=== PATIENT | female | born 1935 | race Caucasian/White ===

== ENCOUNTER 2016-04-18 16:16 | Inpatient (IN) | payer MEDICARE, OTHER ==
[~2016-04-18] VITALS: Ht 160 cm; Wt 49.9 kg
[2016-04-18] VITALS (7 sets, daily range): BP systolic 99–140; BP diastolic 63–91
[~2016-04-18 16:16] MED LIST: A & D OINT1 APPLI1 TOPIC; ABILIFY2 MG ORAL; ACETAMINOPHEN120 MG RECTAL; ACETAMINOPHEN650 M3 ORAL; ADALAT20 MG ORAL; ALBUTEROL2.5 MG/3 M INH; ALLOPURINOL100 M1 ORAL; AMBIEN5 MG ORAL; AMOXICILLIN500 MG ORAL; ARICEPT5 MG ORAL; ARTIFICIAL TEAR15 ML BOTH EYES; ASCORBIC ACID500 M4 ORAL; AZELASTINE137 MCG/0. NS; CEPACOL SORE T1 EAC4 PO; CEPHALEXIN250 MG ORAL; COENZYME Q101 EA ORAL; COENZYME Q10200 MG PO; COLACE100 MG ORAL; COREG3.125 MG ORAL; COREG6.25 MG ORAL; CRANBERRY500 M3 PO; CYMBALTA20 MG ORAL; DITROPAN10 MG ORAL; ESCITALOPRAM OX10 MG ORAL; FLONASE1 SPRAYS NASAL; FUROSEMIDE20 M1 ORAL; IBUPROFEN200 M2 ORAL; IBUPROFEN200 MG ORAL; IMODIUM2 MG ORAL; KLOR-CON M2020 MEQ ORAL; LASIX20 M1 ORAL; LEXAPRO10 MG ORAL; LISINOPRIL10 MG ORAL; LOMOTIL TABLET1 EACH ORAL; LOPERAMIDE2 M1 PO; LORATADINE10 M2 PO; LOSARTAN POTASS25 MG ORAL; MAPAP325 M1 PO; MIRTAZAPINE15 M3 ORAL; NORCO 5-325 TA1 EACH ORAL; NORVASC5 MG ORAL; NUEDEXTA 20-101 EAC1 PO; OMEPRAZOLE20 M3 ORAL; PEPTO-BISM262 MG/15 ORAL; POTASSIUM CHLO10 MEQ ORAL; PREMARIN VAG CR45 GM PV; PREMARIN0.45 MG ORAL; PREMARIN0.625 MG ORAL; PREPARATION H1 EAC1 TP; PREPARATION H1 EAC3 RC; Q-TUSSIN100 MG/5 M PO; REMERON15 MG ORAL; RISPERDAL0.5 MG ORAL; ROZEREM8 MG ORAL; SENNA8.6 M3 PO; SIMVASTATIN80 MG ORAL; THERA-M1 EACH PO; TYLENOL650 MG/20. ORAL; VESICARE5 MG ORAL; VITAMIN D-32000 UNI2 PO
[2016-04-18] MEDS ORDERED: Cefepime HCl 1 GM in NS 55 ML IV ONE (16:30)
[2016-04-18] MEDS ORDERED: Azithromycin 500 MG in NS 275 ML IV ONE (16:30)
--- NOTE | 2016-04-18 16:36 | Emergency Room Report ---
History of Present Illness General Chief Complaint: Upper Respiratory Illness Source: Medical Record Present Illness HPI 80 YO F sent from [facility] for fever, cough, chest congestion per report from RN. I reviewed paperwork from SNF (see below). Patient not speaking, ? chronic condition. No additional HPI available. Per paperwork from [facility]: history of OA, metabolic enceph, depression, dementia, CHF, HTN, CLL in remission Allergies: Coded Allergies: No Known Allergies (Verified , 06/24/11) Patient History Past Medical History: other - see HPI Past Surgical History: unable to obtain Pertinent Family History: unable to obtain Social History: Denies: alcohol use, drug use, smoking Now: No Immunizations: UTD Reviewed Nursing Documentation: PMH: Agreed, PSxH: Agreed Nursing Documentation-PMH Past Medical History: No History, Except For Hx Cardiac Problems: Yes - CHF, Hyperlipidemia, Anemia, Hx Hypertension: Yes - Osteoarthritis Hx Pacemaker: No - - Hx Cancer: Yes - Chronic Lymphocytic leukemia Hx Gastrointestinal Problems: Yes - dysphagia Hx Neurological Problems: Yes - Metabolic encephalopathy, difficulty in walking Hx Weakness: Yes - - Review of Systems All Other Systems: negative except mentioned in HPI Physical Exam Vital Signs Date Time Temp Pulse Resp B/P Pulse Ox O2 Delivery O2 Flow Rate FiO2 04/18/16 16:17 101.7 98 16 130/84 94 Room Air Sp02 EP Interpretation: reviewed, abnormal General Appearance: normal inspection, well appearing, no apparent distress, alert, GCS 15, non-toxic Head: normocephalic, atraumatic Eyes: bilateral eye EOMI, bilateral eye PERRL ENT: normal ENT inspection, hearing grossly normal, normal pharynx, no angioedema, TMs + canals normal, uvula midline, moist mucus membranes Neck: normal inspection, full range of motion, supple, no meningismus, no bony tend Respiratory: normal inspection, no respiratory distress, no retraction, no accessory muscle use, no wheezing, rhonchi Cardiovascular #1: regular rate, rhythm, no edema Gastrointestinal: normal inspection, normal bowel sounds, non tender, soft, no guarding, no hernia Genitourinary: no CVA tenderness Musculoskeletal: normal inspection, back normal, normal range of motion, Madison' s Sign negative Neurologic: normal inspection, alert, oriented x3, responsive, territory account representative III-XII nml as tested, motor strength/tone normal, speech normal Psychiatric: normal inspection, judgement/insight normal, mood/affect normal Skin: normal inspection, normal color, no rash Medical Decision Making Medicare Attestation I Ute Tanner MD hereby attest that the medical record entry for date of service, 01/26/16 accurately reflects signatures/notations that I made in my capacity as MD when I treated/diagnosed the above listed Medicare beneficiary. I attest that this information is true, accurate and complete to the best of my knowledge. I understand that any falsification, omission, or concealment of material fact may subject me to administrative, civil, or criminal liability. This patient warrants hospital admission for extreme of age and has a condition that cannot be treated as outpatient. Diagnostic Impression: Primary Impression: Pneumonia Qualified Codes: J18.9 - Pneumonia, unspecified organism Additional Impression: CKD (chronic kidney disease) Qualified Codes: N18.9 - Chronic kidney disease, unspecified ER Course CXR with ?retrocardiac infilitrate/right sided LL PNA Labs: Leuks 16k. SerumCr elevation baseline compared to review of EMR Endorsed to Dr Moore per request of Dr Michaels at 555pm for tele admission Influenza swab pending EKG Diagnostic Results Rate: tachycardiac Rhythm: NSR ST Segments: other - ST depressions in 1, AVL, V5-6 Rhythm Strip Diag. Results EP Interpretation: yes Rate: 100 Rhythm: other - PACs Chest X-Ray Diagnostic Results EP Interpretation: Yes Findings: no pneumothorax, other - Cardiomegaly, possible right lower lobe PNA Number of Views: 1 Last Vital Signs Date Time Temp Pulse Resp B/P Pulse Ox O2 Delivery O2 Flow Rate FiO2 04/18/16 16:17 101.7 98 16 130/84 94 Room Air Status: improved Disposition: ADMITTED INPATIENT Condition: Serious UTE TANNER M.D. Apr 18, 2016 16:36
[2016-04-18] MEDS ORDERED: Cefepime 1gm vial ONE (16:48)
[2016-04-18] MEDS ORDERED: Azithromycin Inj IV ONE (16:48)
[2016-04-18 17:03] LABS: BASOPHILS % (AUTO) 0.6 % (0.0-2.0); EOSINOPHILS % (AUTO) 0.3 % (0.0-3.0); LYMPHOCYTES % (AUTO) 11.2 % (20.0-45.0); MEAN CORPUSCULAR HEMOGLOBIN 29.3 PG (27.0-31.0); MEAN CORPUSCULAR HGB CONC 32.4 G/DL (32.0-36.0); MEAN CORPUSCULAR VOLUME 90 FL (80-99); MEAN PLATELET VOLUME 7.2 FL (6.5-10.1); MONOCYTES % (AUTO) 9.9 % (1.0-10.0); PLATELET COUNT 191 K/UL (150-450); RED BLOOD COUNT 3.59 M/UL (4.20-5.40); RED CELL DISTRIBUTION WIDTH 12.9 % (11.6-14.8); WHITE BLOOD COUNT 14.8 K/UL (4.8-10.8)
[2016-04-18 17:14] LABS: KETONES,URINE NEGATIVE (NEGATIVE); LEUKOCYTE ESTERASE ,URINE NEGATIVE (NEGATIVE); NITRITE,URINE NEGATIVE (NEGATIVE); PH,URINE 5 (4.5-8.0); PROTEIN,URINE 3+ (NEGATIVE); UROBILINOGEN,URINE NORMAL MG/DL (0.0-1.0)
[2016-04-18 17:15] LABS: APPEARANCE,URINE SLIGHTLY CLOUDY
[2016-04-18 17:21] LABS: ALANINE AMINOTRANSFERASE 5 U/L (3-33); ALBUMIN/GLOBULIN RATIO 1.2 (1.0-2.7); ANION GAP 15 (5-15); ASPARTATE AMINO TRANSFERASE 9 U/L (5-40); CALCIUM 9.5 mg/dL (8.6-10.2); CARBON DIOXIDE 24 mEQ/L (20-30); CHLORIDE 103 mEQ/L (98-107); CREATININE 1.4 mg/dL (0.5-0.9); HEMOLYSIS 6; POTASSIUM 4.7 mEQ/L (3.4-4.9); SODIUM 142 mEQ/L (135-145); TOTAL PROTEIN 6.1 g/dL (6.6-8.7)
[2016-04-18 17:29] LABS: AMORPHOUS SEDIMENT,UR MANY /LPF; BACTERIA,URINE FEW /HPF; RBC,URINE 0-2 /HPF (0 - 2); SQUAMOUS EPITHELIAL CELL,UR MODERATE /LPF (NONE/OCC); WBC,URINE 0-2 /HPF (0 - 2)
[2016-04-19] VITALS (7 sets, daily range): BP systolic 133–159; BP diastolic 67–99
[2016-04-19] MEDS ORDERED: VESICARE10 MG ORAL (01:53)
[2016-04-19] MEDS ORDERED: Albuterol ud Inhalation HHN PRN (02:00)
[2016-04-19] MEDS ORDERED: Acetaminophen 650mg/20.3ml ORAL PRN (02:00)
[2016-04-19] MEDS ORDERED: Prep H Ointment 57gm RECTAL PRN (02:30)
[2016-04-19] MEDS ORDERED: guaiFENesin 100mg/5ml Liq ud ORAL PRN (02:45)
[2016-04-19] MEDS ORDERED: Cefepime HCl 1 GM in D5W 55 ML IVPB SCH (09:00)
[2016-04-19 09:42] LABS: BASOPHILS % (AUTO) 0.4 % (0.0-2.0); EOSINOPHILS % (AUTO) 0.3 % (0.0-3.0); LYMPHOCYTES % (AUTO) 11.6 % (20.0-45.0); MEAN CORPUSCULAR HEMOGLOBIN 29.5 PG (27.0-31.0); MEAN CORPUSCULAR HGB CONC 32.7 G/DL (32.0-36.0); MEAN CORPUSCULAR VOLUME 90 FL (80-99); MEAN PLATELET VOLUME 6.7 FL (6.5-10.1); MONOCYTES % (AUTO) 8.1 % (1.0-10.0); NEUTROPHILS % (AUTO) 79.7 % (45.0-75.0); PLATELET COUNT 225 K/UL (150-450); RED BLOOD COUNT 3.53 M/UL (4.20-5.40); RED CELL DISTRIBUTION WIDTH 12.9 % (11.6-14.8); WHITE BLOOD COUNT 16.8 K/UL (4.8-10.8)
[2016-04-19] MEDS: Premarin tab 0.625MG ORAL SCH (10:09)
[2016-04-19] MEDS: Allopurinol 100mg Tab ORAL SCH (10:09)
[2016-04-19] MEDS: Vitamin D 1000 IU Tab ORAL SCH (10:09)
[2016-04-19] MEDS: Nuedexta Capsule 20/10mg ORAL SCH ×2 (10:09→18:25)
[2016-04-19] MEDS: Docusate 100mg cap ORAL SCH ×2 (10:09→18:25)
[2016-04-19] MEDS: Lisinopril 10mg tab ORAL SCH ×2 (10:09→22:11)
[2016-04-19] MEDS: Multivitamin w/Minerals tab ORAL SCH (10:09)
[2016-04-19] MEDS: Ascorbic Acid 500mg tab ORAL SCH (10:10)
--- NOTE | 2016-04-19 10:58 | Diagnostic Imaging Report ---
Indications: Shortness of breath Technique: Portable AP chest Findings: Comparison: 07/23/2015 Inspiratory effort has improved. Hazy opacities have developed in/over the right mid and lower lung zones. Right costophrenic angle mildly blunted. Visualized portions of left lung and pleura remain clear. Cardiac silhouette remains enlarged. Pulmonary vasculature remains within normal limits. Calcification and elongation/ectasia of the aortic arch, prominent hiatal versus diaphragmatic hernia again noted. IMPRESSION: Development of right lung and/or pleural opacities. Diagnostic possibilities include atelectasis, pneumonia and/or pleural effusion Stable chronic changes as described
[2016-04-19] MEDS: Carvedilol 6.25mg Tab ORAL SCH ×2 (11:57→22:11)
[2016-04-19] MEDS ORDERED: Cefepime 500mg in D5W 55ml IVPB SCH (17:00)
[2016-04-19] MEDS: Azithromycin 500 MG in D5W 275 ML IV SCH (18:31)
--- NOTE | 2016-04-19 21:54 | Geriatric Progress Note ---
Subjective Interval Events 80 y/o frail woman with multiple chronic medical issues, sent from SNF to ED for cough, fever, and congestion. In ED, found to have leukocytosis, possible RML infiltrate, somewhat elevated proBNP, lethargy. Patient admitted for tx of apparent pneumonia. Currently, answers to name with normal vocalization, denies discomfort or SOB. Does have congested cough. Currently O2 sat is 93% on RA. Other VSS stable. Lethargic, but no in physical distress. Chest reveals distant b.s., some egophony over L mid lung field, no wheezing, but coarse upper airway rhonchi. CV distant heart tones, regular. Abd benign. Ext without edema. Imp: ? pneumonia +/- element of CHF. Consider influenza with secondary bacterial pneumonia. Continue usual meds, except OTCs. Cover with empiric zithromax, cefepime. Bronchodilator tx. Hold Lasix initially. F/u labs. DNR per prior POLST. Begin heparin for DVT prophylaxis. Dictated #[id number] Geriatric Geriatric Last 24 Hour Vital Signs Date Time Temp Pulse Resp B/P Pulse Ox O2 Delivery O2 Flow Rate FiO2 04/19/16 20:27 97.9 104 18 142/82 93 Room Air 04/19/16 16:05 94 04/19/16 15:58 98.1 95 18 140/80 96 Room Air 04/19/16 11:57 100 159/99 04/19/16 11:20 96.3 100 18 159/99 96 Room Air 04/19/16 10:09 145/99 04/19/16 08:33 94 20 Nasal Cannula 2.0 92 04/19/16 08:00 88 04/19/16 07:59 96.1 94 18 145/99 92 Room Air 04/19/16 04:09 98.5 95 18 136/67 94 Room Air 04/19/16 04:00 85 04/19/16 00:35 97.0 93 17 133/83 96 Room Air 04/19/16 00:25 102 04/19/16 00:00 99.8 88 16 155/85 97 Room Air 04/18/16 23:25 100.4 98 20 134/75 98 Room Air 04/18/16 23:00 98 20 134/75 98 Room Air 04/18/16 22:00 90 20 139/91 98 Room Air Intake and Output 04/18/16 04/19/16 19:00 07:00 Intake Total 55 ml 275 ml Balance 55 ml 275 ml IV Total 55 ml 275 ml # Voids 2 # Bowel Movements 1 Laboratory Tests Test 04/19/16 09:00 White Blood Count 16.8 K/UL (4.8-10.8) H Red Blood Count 3.53 M/UL (4.20-5.40) L Hemoglobin 10.4 G/DL (12.0-16.0) L Hematocrit 31.9 % (37.0-47.0) L Mean Corpuscular Volume 90 FL (80-99) Mean Corpuscular Hemoglobin 29.5 PG (27.0-31.0) Mean Corpuscular Hemoglobin Concent 32.7 G/DL (32.0-36.0) Red Cell Distribution Width 12.9 % (11.6-14.8) Platelet Count 225 K/UL (150-450) Mean Platelet Volume 6.7 FL (6.5-10.1) Neutrophils (%) (Auto) 79.7 % (45.0-75.0) H Lymphocytes (%) (Auto) 11.6 % (20.0-45.0) L Monocytes (%) (Auto) 8.1 % (1.0-10.0) Eosinophils (%) (Auto) 0.3 % (0.0-3.0) Basophils (%) (Auto) 0.4 % (0.0-2.0) Pro-B-Type Natriuretic Peptide 7969 pg/mL (0-450) H Current Medications Medications (Trade) Dose Ordered Sig/Ángel Route PRN Reason Start Time Stop Time Status Last Admin Dose Admin Acetaminophen (Tylenol) 650 mg Q6H PRN ORAL Prn Headache/Temp > 101 04/19/16 02:00 05/19/16 01:59 Albuterol Sulfate (Proventil) 2.5 mg Q4H PRN HHN Shortness of Breath 04/19/16 02:00 04/24/16 01:59 Allopurinol (Zyloprim) 100 mg DAILY ORAL 04/19/16 09:00 05/19/16 08:59 04/19/16 10:09 Ascorbic Acid (Vitamin C) 500 mg DAILY ORAL 04/19/16 09:00 05/19/16 08:59 04/19/16 10:10 Azithromycin 500 mg/Dextrose 275 ml @ 275 mls/hr Q24H IV 04/19/16 18:00 04/24/16 18:59 04/19/16 18:31 Carvedilol (Coreg) 6.25 mg Q8HR ORAL 04/19/16 11:00 05/19/16 10:59 04/19/16 11:57 Cefepime HCl/ Dextrose (Maxipime/D5W) 55 ml @ 110 mls/hr Q24H IVPB 04/19/16 17:00 04/26/16 16:59 04/19/16 17:53 Dextromethorphan/ Quinidine (Nuedexta Capsule) 1 cap BID ORAL 04/19/16 09:00 05/19/16 08:59 04/19/16 18:25 Docusate Sodium (Colace) 100 mg TWICE A DAY ORAL 04/19/16 09:00 05/19/16 08:59 04/19/16 18:25 Donepezil HCl (Aricept) 5 mg BEDTIME ORAL 04/19/16 21:00 05/19/16 20:59 Estrogens Conjugated (Premarin) 0.625 mg DAILY ORAL 04/19/16 09:00 05/19/16 08:59 04/19/16 10:09 Fexofenadine HCl (Lauren) 60 mg TWICE A DAY ORAL 04/19/16 09:00 05/19/16 08:59 04/19/16 18:25 Guaifenesin 100 mg 100 mg Q4H PRN ORAL For Cough 04/19/16 02:45 05/19/16 02:44 Ibuprofen (Advil) 200 mg DAILYPRN PRN ORAL For Pain 04/19/16 02:30 05/19/16 02:29 Lisinopril (Zestril) 10 mg Q12HR ORAL 04/19/16 09:00 05/19/16 08:59 04/19/16 10:09 Mirtazapine (Remeron) 30 mg BEDTIME ORAL 04/19/16 21:00 05/19/16 20:59 Multivitamins Therapeutic (Therapeutic Multivitamin) 1 ea DAILY ORAL 04/19/16 09:00 05/19/16 08:59 04/19/16 10:09 Phenyleph/Shark Oil/Glycerin/ Petrol (Preparation H) 1 applic BID PRN RECTAL HEMORRHOIDAL PAIN 04/19/16 02:30 05/19/16 02:29 Risperidone (RisperDAL) 0.5 mg BEDTIME ORAL 04/19/16 21:00 05/19/16 20:59 Solifenacin (Vesicare) 5 mg DAILY ORAL 04/19/16 09:00 05/19/16 08:59 04/19/16 10:10 Vitamin D (Vitamin D) 2,000 intlu DAILY ORAL 04/19/16 09:00 05/19/16 08:59 04/19/16 10:09 Height (Feet): 5 Height (Inches): 3.00 Weight (Pounds): 110 MALIA BENITES Apr 19, 2016 21:54
[2016-04-19] MEDS: RisperiDONE 0.25mg tab ORAL SCH (22:11)
[2016-04-19] MEDS: Donepezil 5mg Tab ORAL SCH (22:11)
[2016-04-19] MEDS: Albuterol ud Inhalation HHN SCH (23:55)
[2016-04-20] VITALS: BP 137/87
--- NOTE | 2016-04-20 01:28 | History and Physical Report ---
DATE OF ADMISSION: 04/18/2016 PATIENT'S IDENTIFICATION: The patient is an 80-year-old woman who resides in a senior living facility with multiple chronic medical problems, who was sent to the emergency room because of fever cough and congestion. HISTORY OF PRESENT ILLNESS: The patient is a patient with multiple chronic diagnoses who has been a resident of a senior living facility for approximately a year or so after previously living in the [facility] of same residence. She was last hospitalized at [facility] in December of last year and was evaluated for a possible incarcerated hernia. Ultimately, it was felt that the hernia was not obstructed and could be watched expectantly. She was also found to have acute kidney injury secondary to volume depletion and probable urinary tract infection. The patient was stabilized and discharged back to [facility] where she was cared for by Dr. Xiang Michaels. The patient apparently has been relatively stable with gradually progressive functional decline, but was noted to have fever, cough, and congestion and was sent to the emergency room. In the emergency room, she was seen by Dr. Gillette who noted leukocytosis and possible right lung infiltrate or effusion as well as a fever to 101.7. Therefore, the patient is admitted for further evaluation and treatment. Currently, the patient is lying in bed. She is not requiring oxygen supplementation and although she is somewhat lethargic, her verbalizations have normal voice quality and she does not appear to be in severe distress. When asked she denies she is having any pain or shortness of breath, but her responses are quite limited. PAST MEDICAL HISTORY: 1. 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 2. History of depressive syndrome and anxiety disorder with intermittent agitation and prior episodes of psychosis requiring antidepressant, antipsychotic, and pseudobulbar therapy. 3. Recurrent episodes of toxic metabolic encephalopathy associated with acute illnesses. 4. History of cardiomyopathy with ejection fractions in the 30% to 40% range, improved to 45% to 50% in July 2014. 5. Severe mitral regurgitation. 6. Chronic systolic and diastolic dysfunction with history of acute diastolic dysfunction in July 2015. 7. Recurrent urinary tract infections. 8. Gait instability with history of multiple falls and most recent functional status involving limited ambulation with the use of walker and assistance. 9. Hypertension. 10. Chronic lymphocytic leukemia with history of Rituxan therapy and intermittent Rituxan maintenance therapy. 11. Diaphragmatic eventration. 12. History vaginal wall thickening and vaginal bleeding, managed expectantly by Gynecology. 13. History of hypercalcemia and hyperparathyroidism associated with chronic lymphocytic leukemia. 14. History of pelvic fracture. 15. History of multiple lumbar compression fractures. 16. History of bilateral knee replacement, status post multiple right knee surgeries with nya fixation. 17. History of left ankle fracture with deformity. 18. Osteoporosis, treated with Reclast in the past. 19. History of gout, treated with allopurinol. 20. Recent incarcerated right inguinal hernia without evidence of obstructive symptoms with history of multiple hernias including recurrent bilateral inguinal hernias, status post repair. 21. Chronic kidney disease stage 3 with history of superimposed acute kidney injury associated with acute illnesses. MEDICATIONS: The patient's medications include Tylenol p.r.n., albuterol inhaler unit dose q.4 h. p.r.n. shortness of breath, allopurinol 100 mg daily, vitamin C 500 mg daily, carvedilol 6.25 mg q.8 h., vitamin D3 2000 units daily, Coenzyme Q10 daily, cranberry 425 mg daily, Nuedexta one capsule daily, Colace 100 mg b.i.d., donepezil 5 mg at bedtime, Lexapro 5 mg daily, Premarin 0.625 mg daily, Lasix 20 mg daily, ibuprofen 200 mg p.r.n., lisinopril 10 mg q.12 h., loperamide 2 mg p.r.n., loratadine 10 mg at bedtime, mirtazapine 30 mg at bedtime, multivitamins daily, preparation H suppositories p.r.n., Risperdal 0.5 mg at bedtime, VESIcare 15 mg daily, and vitamin A and D ointment daily to the affected skin. ALLERGIES: No known allergies. SOCIAL HISTORY: The patient was born in [place]. 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 She was in 2008. She has a son and a daughter, and has been living in [facility], first in the assisted living section and lately in a senior living facility. She has no history of tobacco usage, and occasional alcohol use in the past. FAMILY HISTORY: Notable for her mother dying of leukemia in her 60s. Her father of a myocardial infarction in his 60s. She had one brother with a heart problem and she has two children, who as last reported are alive and well. REVIEW OF SYSTEMS: The patient gives virtually no responses except as described above. PHYSICAL EXAMINATION: VITAL SIGNS: The patient's blood pressure is 142/82, heart rate is 90, respiratory rate is 20, temperature is 97.9, and oxygen saturation 94% on room air. GENERAL: The patient is a well-developed, frail, elderly woman, lying in bed with her eyes closed and with minimal verbal responses, but not in overt distress. HEAD AND NECK: Normocephalic and atraumatic skull. Sclerae and conjunctivae are clear and anicteric. The oropharynx and tongue appear slightly dry. The neck appears to have normal range of motion with no masses. CHEST: Distant breath sounds with some bibasilar crackles and egophony over the left midlung field. BREASTS: Without dominant masses. ABDOMEN: Normal bowel sounds. The abdomen is soft and nontender. EXTREMITIES: Advanced changes of degenerative joint disease. No distal edema. There is no calf tenderness and no acute synovial processes. NEUROLOGIC: The patient appears to move all extremities, but full testing cannot be completed because of the patient's lack of cooperation. LABORATORY DATA: The patient's initial white count was 14.8 with hematocrit of 32.9, MCV of 90, and platelet count of 191,000 with minimal neutrophilia on differential. A repeat was done, which revealed white count of 16.8 with the other parameters essentially unchanged. The patient's initial chemistry showed a sodium of 142, potassium 4.7, chloride 103, bicarbonate 24, BUN 36, creatinine 1.4, glucose 123, lactate 0.8, calcium 9.5, total bilirubin 0.5, AST 9, ALT 5, and alkaline phosphatase 85. ProBNP 7969. Total protein 6.1 and albumin 3.4. Urinalysis revealed 0 to 2 WBCs and 0 to 2 RBCs with few bacteria. The patient's chest x-ray revealed significant eventration of the diaphragm with reduced lung alvarado bilaterally. There is also significant cardiomegaly with resulting limited visualization of the lung parenchyma. There is a question of some haziness over the right lung and possibly pleural opacity. The patient's rhythm on the assistant store manager operations currently reveals sinus rhythm. IMPRESSION AND PLAN: The patient presents with what is probably most likely a pneumonitis or possibly even a significant bronchitis with minimal alveolar involvement. Possibility of an influenza can be considered as well given the current status of influenza in the community. The fact that she does not require supplemental oxygen at the present time, suggests that the actual parenchymal involvement is not severe; however, the patient does have a very congested cough. The patient's mental status is probably compatible with mild encephalopathy associated with acute illness. Her other laboratory values appear relatively normal with mild elevation of her creatinine suggesting possibly a degree of intravascular volume depletion, although the elevated proBNP also raises the possibility of an element of fluid overload. However, there is no peripheral edema and the lung parenchyma did not show vascular redistribution at the present time, so this appears less likely. Given these various considerations, the patient will be maintained on empiric cefepime and azithromycin. Her usual medications will be continued except for the [id number], which are not available on the current formulary. Because of some agitation and calling out noted in the emergency room and during transfer, the patient's Nuedexta dosing will be increased to twice a day to control any element of lability. Her Lasix will be held temporarily since it is likely the patient slightly volume depleted and will be restarted when the patient appears more euvolemic. The patient is DNR as previously denoted by a POLST and discussed with her daughter. Bronchodilator treatments will be utilized to attempt to clear her airway mechanically, and additional interventions will be considered depending on the patient's initial response to therapy. Kam Wolff M.D. DR: AMBER JOB#: [id number] CC: [id number]
[2016-04-20 04:00] VITALS: BP 146/94
[2016-04-20] MEDS: Carvedilol 6.25mg Tab ORAL SCH ×4 (05:28→22:00)
[2016-04-20] MEDS: Albuterol ud Inhalation HHN SCH ×4 (06:50→19:00)
[2016-04-20 07:52] VITALS: BP 142/67
[2016-04-20] MEDS: Premarin tab 0.625MG ORAL SCH (08:54)
[2016-04-20 08:55] LABS: BASOPHILS % (AUTO) 0.3 % (0.0-2.0); EOSINOPHILS % (AUTO) 1.3 % (0.0-3.0); LYMPHOCYTES % (AUTO) 11.9 % (20.0-45.0); MEAN CORPUSCULAR HEMOGLOBIN 29.2 PG (27.0-31.0); MEAN CORPUSCULAR HGB CONC 32.8 G/DL (32.0-36.0); MEAN CORPUSCULAR VOLUME 89 FL (80-99); MONOCYTES % (AUTO) 8.7 % (1.0-10.0); NEUTROPHILS % (AUTO) 77.8 % (45.0-75.0); PLATELET COUNT 187 K/UL (150-450); RED CELL DISTRIBUTION WIDTH 12.5 % (11.6-14.8); WHITE BLOOD COUNT 10.2 K/UL (4.8-10.8)
[2016-04-20] MEDS: Multivitamin w/Minerals tab ORAL SCH (08:55)
[2016-04-20] MEDS: Lisinopril 10mg tab ORAL SCH ×2 (08:55→21:00)
[2016-04-20] MEDS: Allopurinol 100mg Tab ORAL SCH (08:55)
[2016-04-20] MEDS: Ascorbic Acid 500mg tab ORAL SCH (08:55)
[2016-04-20] MEDS: Vitamin D 1000 IU Tab ORAL SCH (08:55)
[2016-04-20] MEDS: Docusate 100mg cap ORAL SCH ×2 (08:55→19:08)
[2016-04-20] MEDS: Nuedexta Capsule 20/10mg ORAL SCH ×2 (09:04→19:08)
[2016-04-20 09:33] LABS: ALANINE AMINOTRANSFERASE 5 U/L (3-33); ALBUMIN/GLOBULIN RATIO 1.1 (1.0-2.7); ANION GAP 14 (5-15); ASPARTATE AMINO TRANSFERASE 8 U/L (5-40); CALCIUM 9.3 mg/dL (8.6-10.2); CARBON DIOXIDE 25 mEQ/L (20-30); CHLORIDE 103 mEQ/L (98-107); CREATININE 1.1 mg/dL (0.5-0.9); HEMOLYSIS 0; MAGNESIUM 1.9 mg/dL (1.7-2.5); PHOSPHORUS 2.5 mg/dL (2.5-4.8); POTASSIUM 3.9 mEQ/L (3.4-4.9); SODIUM 142 mEQ/L (135-145); TOTAL PROTEIN 5.5 g/dL (6.6-8.7)
[2016-04-20 11:20] VITALS: BP 132/67
[2016-04-20 16:00] VITALS: BP 143/89
--- NOTE | 2016-04-20 16:03 | Geriatric Progress Note ---
Assessment/Plan Problems: (1) Chronic lymphoid leukemia (2) Acute kidney injury (nontraumatic) (3) Toxic metabolic encephalopathy (4) CKD (chronic kidney disease) (5) Pneumonia (6) Paranoia (psychosis) (7) Cognitive and behavioral changes (8) Hypertension (9) Gait abnormality (10) Osteoarthritis Assessment/Plan Patient responding to current tx, will recheck CXR re vascular redistribution vs. infiltrate. Continue antibiotics. Will discuss with Dr. Michaels whether to convert to po or complete IV course at SNF. Given sharp rise in proBNP, will reinstitute Lasix 20mg daily. Given patient's refusal of meds, blood draws, will hold off on DVT prophylaxis to avoid increasing agitation and paranoia. Explained to patient she needs to comply with tx in order to return to SNF. Reviewed management with staff. Discussed with dtr re status, tx, d/c plans. Recheck labs in am. Expect d/c in 24-48 hours if no further complications. Discussed with: patient, family, hospital staff Subjective Interval Events Patient sitting in bed, no overt discomfort. Denies SOB, pain. Has been refusing some medications, blood draws, c/w with behavior during prior hospitalizations. Leukocytosis resolved. O2 sats remain reasonable on RA. Cough seems less congested. ProBNP increased today. Began mobilization with P.T. Subjective Denies pain, discomfort, but unable to respond accurately in detail. Geriatric Geriatric Last 24 Hour Vital Signs Date Time Temp Pulse Resp B/P Pulse Ox O2 Delivery O2 Flow Rate FiO2 04/20/16 15:15 Room Air 04/20/16 15:15 Room Air 04/20/16 13:28 94 132/67 04/20/16 11:20 96.6 94 18 132/67 96 Room Air 04/20/16 11:14 Room Air 04/20/16 11:14 Room Air 04/20/16 08:55 142/67 04/20/16 08:00 90 04/20/16 07:52 96.3 84 18 142/67 95 Room Air 04/20/16 06:53 Room Air 04/20/16 06:51 87 16 94 Room Air 04/20/16 04:00 97.2 91 18 146/94 94 Room Air 04/20/16 04:00 94 04/20/16 00:00 97.3 85 18 137/87 94 Room Air 04/20/16 00:00 97 04/19/16 22:11 142/82 04/19/16 22:11 90 142/82 04/19/16 21:48 99 18 99 04/19/16 21:38 90 20 94 Room Air 04/19/16 20:27 97.9 104 18 142/82 93 Room Air 04/19/16 20:00 121 04/19/16 19:00 90 20 Room Air 04/19/16 16:05 94 04/19/16 15:58 98.1 95 18 140/80 96 Room Air Intake and Output 04/19/16 04/20/16 19:00 07:00 Intake Total 275 ml 240 ml Balance 275 ml 240 ml Intake Oral 220 ml 240 ml IV Total 55 ml # Voids 2 # Bowel Movements 1 1 Laboratory Tests Test 04/20/16 08:15 White Blood Count 10.2 K/UL (4.8-10.8) Red Blood Count 3.30 M/UL (4.20-5.40) L Hemoglobin 9.6 G/DL (12.0-16.0) L Hematocrit 29.3 % (37.0-47.0) L Mean Corpuscular Volume 89 FL (80-99) Mean Corpuscular Hemoglobin 29.2 PG (27.0-31.0) Mean Corpuscular Hemoglobin Concent 32.8 G/DL (32.0-36.0) Red Cell Distribution Width 12.5 % (11.6-14.8) Platelet Count 187 K/UL (150-450) Mean Platelet Volume 7.0 FL (6.5-10.1) Neutrophils (%) (Auto) 77.8 % (45.0-75.0) H Lymphocytes (%) (Auto) 11.9 % (20.0-45.0) L Monocytes (%) (Auto) 8.7 % (1.0-10.0) Eosinophils (%) (Auto) 1.3 % (0.0-3.0) Basophils (%) (Auto) 0.3 % (0.0-2.0) Sodium Level 142 mEQ/L (135-145) Potassium Level 3.9 mEQ/L (3.4-4.9) Chloride Level 103 mEQ/L (98-107) Carbon Dioxide Level 25 mEQ/L (20-30) Anion Gap 14 (5-15) Blood Urea Nitrogen 26 mg/dL (7-23) H Creatinine 1.1 mg/dL (0.5-0.9) H Estimat Glomerular Filtration Rate mL/min (>60) Glucose Level 102 mg/dL (74-106) Calcium Level 9.3 mg/dL (8.6-10.2) Phosphorus Level 2.5 mg/dL (2.5-4.8) Magnesium Level 1.9 mg/dL (1.7-2.5) Total Bilirubin 0.2 mg/dL (0.0-1.2) Aspartate Amino Transf (AST/SGOT) 8 U/L (5-40) Alanine Aminotransferase (ALT/SGPT) 5 U/L (3-33) Alkaline Phosphatase 89 U/L (35-104) Pro-B-Type Natriuretic Peptide 52468 pg/mL (0-450) H Total Protein 5.5 g/dL (6.6-8.7) L Albumin 2.9 g/dL (3.5-5.2) L Globulin 2.6 g/dL Albumin/Globulin Ratio 1.1 (1.0-2.7) Current Medications Medications (Trade) Dose Ordered Sig/Ángel Route PRN Reason Start Time Stop Time Status Last Admin Dose Admin Acetaminophen (Tylenol) 650 mg Q6H PRN ORAL Prn Headache/Temp > 101 04/19/16 02:00 05/19/16 01:59 Albuterol Sulfate 2.5 mg 2.5 mg QIDRT HHN 04/19/16 23:00 04/24/16 22:59 04/19/16 23:55 Allopurinol (Zyloprim) 100 mg DAILY ORAL 04/19/16 09:00 05/19/16 08:59 04/20/16 08:55 Ascorbic Acid (Vitamin C) 500 mg DAILY ORAL 04/19/16 09:00 05/19/16 08:59 04/20/16 08:55 Azithromycin/ Dextrose (Zithromax/D5W) 275 ml @ 275 mls/hr Q24H IV 04/19/16 18:00 04/24/16 18:59 04/19/16 18:31 Carvedilol (Coreg) 6.25 mg Q8HR ORAL 04/19/16 11:00 05/19/16 10:59 04/20/16 13:28 Cefepime HCl/ Dextrose (Maxipime/D5W) 110 ml @ 220 mls/hr Q24H IVPB 04/20/16 17:00 04/27/16 16:59 Dextromethorphan/ Quinidine (Nuedexta Capsule) 1 cap BID ORAL 04/19/16 09:00 05/19/16 08:59 04/20/16 09:04 Docusate Sodium (Colace) 100 mg TWICE A DAY ORAL 04/19/16 09:00 05/19/16 08:59 04/20/16 08:55 Donepezil HCl (Aricept) 5 mg BEDTIME ORAL 04/19/16 21:00 05/19/16 20:59 04/19/16 22:11 Estrogens Conjugated (Premarin) 0.625 mg DAILY ORAL 04/19/16 09:00 05/19/16 08:59 04/20/16 08:54 Fexofenadine HCl (Lauren) 60 mg TWICE A DAY ORAL 04/19/16 09:00 05/19/16 08:59 04/20/16 08:58 Guaifenesin 100 mg 100 mg Q4H PRN ORAL For Cough 04/19/16 02:45 05/19/16 02:44 Ibuprofen (Advil) 200 mg DAILYPRN PRN ORAL For Pain 04/19/16 02:30 05/19/16 02:29 Lisinopril (Zestril) 10 mg Q12HR ORAL 04/19/16 09:00 05/19/16 08:59 04/20/16 08:55 Mirtazapine (Remeron) 30 mg BEDTIME ORAL 04/19/16 21:00 05/19/16 20:59 04/19/16 22:11 Multivitamins Therapeutic (Therapeutic Multivitamin) 1 ea DAILY ORAL 04/19/16 09:00 05/19/16 08:59 04/20/16 08:55 Phenyleph/Shark Oil/Glycerin/ Petrol (Preparation H) 1 applic BID PRN RECTAL HEMORRHOIDAL PAIN 04/19/16 02:30 05/19/16 02:29 Risperidone (RisperDAL) 0.5 mg BEDTIME ORAL 04/19/16 21:00 05/19/16 20:59 04/19/16 22:11 Solifenacin (Vesicare) 5 mg DAILY ORAL 04/19/16 09:00 05/19/16 08:59 04/20/16 08:55 Vitamin D (Vitamin D) 2,000 intlu DAILY ORAL 04/19/16 09:00 05/19/16 08:59 04/20/16 08:55 Height (Feet): 5 Height (Inches): 3.00 Weight (Pounds): 110 General Appearance: no apparent distress, alert Head: normocephalic Eyes: bilateral anicteric ENT: normal voice Neck: full range of motion, no mass Respiratory: rhonchi - upper airway, seems less prominent today Cardiovascular: regular rate, rhythm Gastrointestinal: normal bowel sounds, non tender, soft, no mass, no organomegaly Musculoskeletal: no calf tenderness Edema: no edema noted Generalized Neurologic: no new focality MALIA BENITES Apr 20, 2016 16:03
[2016-04-20] MEDS: Cefepime HCl 1 GM in D5W 110 ML IVPB SCH (16:44)
[2016-04-20] MEDS: Azithromycin 500 MG in D5W 275 ML IV SCH (19:15)
[2016-04-20 20:00] VITALS: BP 151/108
[2016-04-20] MEDS: RisperiDONE 0.25mg tab ORAL SCH (21:00)
[2016-04-20] MEDS: Donepezil 5mg Tab ORAL SCH (21:00)
[2016-04-20 21:10] LABS: ANION GAP 14 (5-15); CALCIUM 9.3 mg/dL (8.6-10.2); CARBON DIOXIDE 24 mEQ/L (20-30); CHLORIDE 101 mEQ/L (98-107); CREATININE 0.9 mg/dL (0.5-0.9); HEMOLYSIS 1; POTASSIUM 4.1 mEQ/L (3.4-4.9); SODIUM 139 mEQ/L (135-145)
[2016-04-21 00:18] VITALS: BP 130/85
[2016-04-21 04:19] VITALS: BP 133/70
[2016-04-21] MEDS: Carvedilol 6.25mg Tab ORAL SCH ×3 (06:00→21:20)
[2016-04-21] MEDS: Albuterol ud Inhalation HHN SCH ×4 (07:49→20:23)
--- NOTE | 2016-04-21 07:54 | Cardiology Report ---
APPROVED REPORT EKG Measurement Heart [id number] [place] [id number] Sinus tachycardia with premature atrial complexes Left axis deviation Left bundle branch block Abnormal ECG
[2016-04-21 08:11] VITALS: BP 124/76
[2016-04-21] MEDS: Vitamin D 1000 IU Tab ORAL SCH (08:38)
[2016-04-21] MEDS: Premarin tab 0.625MG ORAL SCH (08:38)
[2016-04-21] MEDS: Lisinopril 10mg tab ORAL SCH ×2 (08:38→21:21)
[2016-04-21] MEDS: Docusate 100mg cap ORAL SCH ×2 (08:38→17:49)
[2016-04-21] MEDS: Nuedexta Capsule 20/10mg ORAL SCH ×2 (08:38→17:49)
[2016-04-21] MEDS: Allopurinol 100mg Tab ORAL SCH (08:39)
[2016-04-21] MEDS: Multivitamin w/Minerals tab ORAL SCH (08:39)
[2016-04-21] MEDS: Ascorbic Acid 500mg tab ORAL SCH (08:39)
[2016-04-21 10:46] LABS: BASOPHILS % (AUTO) 0.5 % (0.0-2.0); EOSINOPHILS % (AUTO) 1.6 % (0.0-3.0); LYMPHOCYTES % (AUTO) 10.2 % (20.0-45.0); MEAN CORPUSCULAR HEMOGLOBIN 29.1 PG (27.0-31.0); MEAN CORPUSCULAR HGB CONC 32.6 G/DL (32.0-36.0); MEAN CORPUSCULAR VOLUME 89 FL (80-99); MEAN PLATELET VOLUME 6.7 FL (6.5-10.1); MONOCYTES % (AUTO) 5.8 % (1.0-10.0); PLATELET COUNT 238 K/UL (150-450); RED CELL DISTRIBUTION WIDTH 12.6 % (11.6-14.8); WHITE BLOOD COUNT 11.5 K/UL (4.8-10.8)
[2016-04-21 12:51] VITALS: BP 107/76
--- NOTE | 2016-04-21 14:43 | Diagnostic Imaging Report ---
Indication: Chest Pain Comparison: 04/18/16 A single view chest radiograph was obtained. Findings: The left hemidiaphragm is elevated. Cardiomegaly is noted and there may be an infiltrate at the right lung base. Impression: No change from the prior study. Questionable fracture right lung base Elevated left hemidiaphragm Cardiomegaly
[2016-04-21 16:00] VITALS: BP 157/105
[2016-04-21] MEDS: Cefepime HCl 1 GM in D5W 110 ML IVPB SCH (17:49)
[2016-04-21] MEDS: Azithromycin 500 MG in D5W 275 ML IV SCH (19:35)
--- NOTE | 2016-04-21 19:39 | Geriatric Progress Note ---
Assessment/Plan Problems: (1) Chronic lymphoid leukemia (2) Acute kidney injury (nontraumatic) (3) Toxic metabolic encephalopathy (4) CKD (chronic kidney disease) (5) Pneumonia (6) Paranoia (psychosis) (7) Cognitive and behavioral changes (8) Hypertension (9) Gait abnormality (10) Osteoarthritis Assessment/Plan Patient appears to be stabilizing. Discussed with Dr. Michaels re d/c plans: will convert to Augmentin po and plan d/c tomorrow if no further events. D/c IVF in am. Recheck labs. Dictated #[id number] Discussed with: hospital staff Subjective Interval Events Patient sleeping. No interval changes reported. Maintains good O2 sat on RA. Repeat CXR shows probably decreased R lung opacification, no vascular redistribution. Repeat labs OK. Variable intake, adequate b.m. Subjective Patient sleeping, staff report no new sxs. Geriatric Geriatric Last 24 Hour Vital Signs Date Time Temp Pulse Resp B/P Pulse Ox O2 Delivery O2 Flow Rate FiO2 04/21/16 16:00 98.6 98 20 157/105 94 Room Air 04/21/16 15:15 87 20 99 Room Air 21 04/21/16 15:03 85 19 96 Room Air 21 04/21/16 15:03 21 04/21/16 14:00 87 107/76 04/21/16 12:51 97.7 87 18 107/76 98 Room Air 04/21/16 12:00 91 04/21/16 11:30 105 16 99 Room Air 21 04/21/16 11:14 21 04/21/16 11:14 105 16 99 Room Air 2.0 21 04/21/16 08:38 124/76 04/21/16 08:11 97.0 102 18 124/76 99 Room Air 04/21/16 08:02 88 17 98 Room Air 21 04/21/16 08:00 89 04/21/16 07:59 86 16 92 Room Air 2.0 92 04/21/16 07:50 86 16 Room Air 92 04/21/16 07:50 86 19 92 Room Air 21 04/21/16 07:50 21 04/21/16 04:19 98.4 73 18 133/70 94 Room Air 04/21/16 04:00 89 04/21/16 00:18 98.5 87 17 130/85 95 Room Air 04/21/16 00:00 90 04/20/16 20:00 98 04/20/16 20:00 98.2 98 21 151/108 95 Room Air Intake and Output 04/20/16 04/21/16 19:00 07:00 Intake Total 520 ml 475 ml Balance 520 ml 475 ml Intake Oral 300 ml 200 ml IV Total 220 ml 275 ml # Voids 2 2 # Bowel Movements 1 1 Laboratory Tests Test 04/20/16 19:40 04/21/16 10:05 Sodium Level 139 mEQ/L (135-145) Potassium Level 4.1 mEQ/L (3.4-4.9) Chloride Level 101 mEQ/L (98-107) Carbon Dioxide Level 24 mEQ/L (20-30) Anion Gap 14 (5-15) Blood Urea Nitrogen 23 mg/dL (7-23) Creatinine 0.9 mg/dL (0.5-0.9) Estimat Glomerular Filtration Rate mL/min (>60) Glucose Level 116 mg/dL (74-106) H Calcium Level 9.3 mg/dL (8.6-10.2) White Blood Count 11.5 K/UL (4.8-10.8) H Red Blood Count 3.30 M/UL (4.20-5.40) L Hemoglobin 9.6 G/DL (12.0-16.0) L Hematocrit 29.5 % (37.0-47.0) L Mean Corpuscular Volume 89 FL (80-99) Mean Corpuscular Hemoglobin 29.1 PG (27.0-31.0) Mean Corpuscular Hemoglobin Concent 32.6 G/DL (32.0-36.0) Red Cell Distribution Width 12.6 % (11.6-14.8) Platelet Count 238 K/UL (150-450) Mean Platelet Volume 6.7 FL (6.5-10.1) Neutrophils (%) (Auto) 82.0 % (45.0-75.0) H Lymphocytes (%) (Auto) 10.2 % (20.0-45.0) L Monocytes (%) (Auto) 5.8 % (1.0-10.0) Eosinophils (%) (Auto) 1.6 % (0.0-3.0) Basophils (%) (Auto) 0.5 % (0.0-2.0) Current Medications Medications (Trade) Dose Ordered Sig/Ángel Route PRN Reason Start Time Stop Time Status Last Admin Dose Admin Acetaminophen (Tylenol) 650 mg Q6H PRN ORAL Prn Headache/Temp > 101 04/19/16 02:00 05/19/16 01:59 Albuterol Sulfate 2.5 mg 2.5 mg QIDRT HHN 04/19/16 23:00 04/24/16 22:59 04/21/16 15:03 Allopurinol (Zyloprim) 100 mg DAILY ORAL 04/19/16 09:00 05/19/16 08:59 04/21/16 08:39 Ascorbic Acid (Vitamin C) 500 mg DAILY ORAL 04/19/16 09:00 05/19/16 08:59 04/21/16 08:39 Azithromycin/ Dextrose (Zithromax/D5W) 275 ml @ 275 mls/hr Q24H IV 04/19/16 18:00 04/24/16 18:59 04/20/16 19:15 Carvedilol (Coreg) 6.25 mg Q8HR ORAL 04/19/16 11:00 05/19/16 10:59 04/20/16 13:28 Cefepime HCl/ Dextrose (Maxipime/D5W) 110 ml @ 220 mls/hr Q24H IVPB 04/20/16 17:00 04/27/16 16:59 04/21/16 17:49 Dextromethorphan/ Quinidine (Nuedexta Capsule) 1 cap BID ORAL 04/19/16 09:00 05/19/16 08:59 04/21/16 17:49 Docusate Sodium (Colace) 100 mg TWICE A DAY ORAL 04/19/16 09:00 05/19/16 08:59 04/21/16 17:49 Donepezil HCl (Aricept) 5 mg BEDTIME ORAL 04/19/16 21:00 05/19/16 20:59 04/19/16 22:11 Estrogens Conjugated (Premarin) 0.625 mg DAILY ORAL 04/19/16 09:00 05/19/16 08:59 04/21/16 08:38 Fexofenadine HCl (Lauren) 60 mg TWICE A DAY ORAL 04/19/16 09:00 05/19/16 08:59 04/21/16 17:49 Furosemide (Lasix) 20 mg DAILY ORAL 04/21/16 09:00 05/21/16 08:59 04/21/16 08:39 Guaifenesin 100 mg 100 mg Q4H PRN ORAL For Cough 04/19/16 02:45 05/19/16 02:44 04/21/16 17:49 Ibuprofen (Advil) 200 mg DAILYPRN PRN ORAL For Pain 04/19/16 02:30 05/19/16 02:29 Lisinopril (Zestril) 10 mg Q12HR ORAL 04/19/16 09:00 05/19/16 08:59 04/21/16 08:38 Mirtazapine (Remeron) 30 mg BEDTIME ORAL 04/19/16 21:00 05/19/16 20:59 04/19/16 22:11 Multivitamins Therapeutic (Therapeutic Multivitamin) 1 ea DAILY ORAL 04/19/16 09:00 05/19/16 08:59 04/21/16 08:39 Phenyleph/Shark Oil/Glycerin/ Petrol (Preparation H) 1 applic BID PRN RECTAL HEMORRHOIDAL PAIN 04/19/16 02:30 05/19/16 02:29 Risperidone (RisperDAL) 0.5 mg BEDTIME ORAL 04/19/16 21:00 05/19/16 20:59 04/19/16 22:11 Solifenacin (Vesicare) 5 mg DAILY ORAL 04/19/16 09:00 05/19/16 08:59 04/21/16 08:39 Vitamin D (Vitamin D) 2,000 intlu DAILY ORAL 04/19/16 09:00 05/19/16 08:59 04/21/16 08:38 Height (Feet): 5 Height (Inches): 3.00 Weight (Pounds): 110 General Appearance: no apparent distress Head: normocephalic Eyes: bilateral anicteric Neck: full range of motion, no mass Respiratory: rhonchi, other - good air movement Cardiovascular: regular rate, rhythm - with frequent ectopy, probably MFAT on monitor. Gastrointestinal: normal bowel sounds, non tender, soft, no mass, no organomegaly Musculoskeletal: no calf tenderness Edema: no edema noted Generalized MALIA BENITES Apr 21, 2016 19:39
[2016-04-21] MEDS ORDERED: AMOX TR-K CLV1 EAC2 ORAL (19:45)
[2016-04-21] MEDS ORDERED: NUEDEXTA 20-101 EAC1 ORAL (19:45)
[2016-04-21 20:00] VITALS: BP 140/97
[2016-04-21] MEDS: Donepezil 5mg Tab ORAL SCH (21:20)
[2016-04-21] MEDS: RisperiDONE 0.25mg tab ORAL SCH (21:20)
[2016-04-21] MEDS: Augmentin 875mg Tab ORAL SCH (21:21)
[2016-04-22 00:39] VITALS: BP 117/69
--- NOTE | 2016-04-22 02:38 | Discharge Summary ---
DATE OF ADMISSION: 04/18/2016 DATE OF DISCHARGE: 04/22/2016 DISCHARGE DIAGNOSES: 1. Cough, congestion, and fever likely secondary to either pneumonia or moderately severe bronchitis, responding to antibiotic therapy and bronchodilator therapy. 2. Mild volume depletion associated with above. 3. Mild encephalopathy associated with acute episode of illness. 4. Chronic cognitive dysfunction secondary to small-vessel cerebrovascular disease and moderate dementia. 5. History of depressive syndrome and anxiety disorder with intermittent agitation and prior episodes of psychosis requiring antidepressant, antipsychotics, and pseudobulbar therapy. 6. Recurrent episodes of encephalopathy associated with acute illnesses. 7. History of cardiomyopathy with improved left ventricular function documented in July 2014, with ejection fraction of 45% to 50%. 8. Severe mitral regurgitation. 9. Chronic systolic and diastolic dysfunction with a history of acute diastolic dysfunction in July 2015. 10. Recurrent urinary tract infections. 11. Gait instability with history of multiple falls and current functional status with limited mobility. 12. Hypertension. 13. Chronic lymphocytic leukemia with history of Rituxan therapy. 14. Diaphragmatic eventration. 15. History of vaginal wall thickening and vaginal bleeding managed expectantly by gynecology. 16. History of hypercalcemia and hyperparathyroidism associated with chronic lymphocytic leukemia. 17. History of pelvic fracture. 18. History of multiple lumbar compression fractures. 19. History of bilateral knee replacement, status post multiple right knee surgeries with a nya fixation. 20. History of left ankle fracture with deformity. 21. Osteoporosis treated with Reclast in the past. 22. History of gout, treated with allopurinol. 23. History of incarcerated right inguinal hernia without evidence of obstruction with prior history of multiple hernias including recurrent bilateral inguinal hernias, status post repair. 24. Chronic kidney disease stage III with history of superimposed acute kidney injury associated with acute illness. HISTORY OF PRESENT ILLNESS: The patient is an 80-year-old woman with multiple chronic problems who has been a resident of assisted facility for a period of time. She was sent to the emergency room because of fever, cough, and congestion. Details of the history and physical examination are per the dictation on 04/19/2016. HOSPITAL COURSE: Despite her cough, congestion, and fever, the patient was noted to have adequate oxygenation on room air. Her entire presentation was not entirely inconsistent with the influenza episode possibly complicated by bacterial secondary infection, but the patient has had these symptoms for several days and it was felt that the influenza treatment was not likely being of much benefit. The patient was seen in emergency room and placed on cefepime and azithromycin intravenously empirically for the apparent right lung pneumonia. This was continued. Bronchodilator treatments were initiated routinely and the patient's Lasix was held for several days because there appeared to be some element of volume depletion. The patient's initial leukocytosis climbed on the next set of laboratories, but then normalized fairly rapidly. Her acute kidney injury superimposed on her chronic kidney disease also reversed. The patient at this point appears to be stabilizing and she is able to go to a lower level of care. The situation was discussed with Dr. Michaels who cares for the patient at [facility]. It was agreed that the patient be taken off her intravenous antibiotics and initiated on Augmentin with the course to be completed at the [facility]. At this point, the patient's oral intake is somewhat variable, but apparently adequate. She also initiated mobilization with physical therapy with in bed exercises at this point. The patient will be returned to her assisted facility at [facility]. Her medications will remain essentially the same as on admission with the addition of a second dose of Nuedexta because of refusal of medications and intermittent agitation, which has improved with the increase in Nuedexta. In addition, the patient will be on Augmentin 875 mg q.12 hours for additional five days and her bronchodilator therapy should probably be given routinely for the first several days, and then converted to p.r.n. Kam Wolff M.D. DR: DIANA JOB#: [id number] CC: [email or web address]
[2016-04-22 04:18] VITALS: BP 128/89
[2016-04-22] MEDS: Carvedilol 6.25mg Tab ORAL SCH (06:19)
[2016-04-22] MEDS: Albuterol ud Inhalation HHN SCH ×2 (07:21→11:00)
[2016-04-22 08:22] VITALS: BP 129/78
[2016-04-22 08:24] LABS: BASOPHILS % (AUTO) 0.4 % (0.0-2.0); EOSINOPHILS % (AUTO) 4.1 % (0.0-3.0); LYMPHOCYTES % (AUTO) 18.6 % (20.0-45.0); MEAN CORPUSCULAR HEMOGLOBIN 28.9 PG (27.0-31.0); MEAN CORPUSCULAR HGB CONC 32.4 G/DL (32.0-36.0); MEAN CORPUSCULAR VOLUME 89 FL (80-99); MEAN PLATELET VOLUME 6.2 FL (6.5-10.1); NEUTROPHILS % (AUTO) 67.8 % (45.0-75.0); PLATELET COUNT 239 K/UL (150-450); RED BLOOD COUNT 3.26 M/UL (4.20-5.40); RED CELL DISTRIBUTION WIDTH 12.6 % (11.6-14.8)
[2016-04-22 08:49] LABS: ANION GAP 16 (5-15); CALCIUM 8.6 mg/dL (8.6-10.2); CARBON DIOXIDE 24 mEQ/L (20-30); CHLORIDE 100 mEQ/L (98-107); CREATININE 1.2 mg/dL (0.5-0.9); HEMOLYSIS 0; SODIUM 140 mEQ/L (135-145)
[2016-04-22] MEDS: Docusate 100mg cap ORAL SCH (08:56)
[2016-04-22] MEDS: Ascorbic Acid 500mg tab ORAL SCH (08:56)
[2016-04-22] MEDS: Augmentin 875mg Tab ORAL SCH (08:56)
[2016-04-22] MEDS: Lisinopril 10mg tab ORAL SCH (08:56)
[2016-04-22] MEDS: Premarin tab 0.625MG ORAL SCH (08:56)
[2016-04-22] MEDS: Vitamin D 1000 IU Tab ORAL SCH (08:57)
[2016-04-22] MEDS: Nuedexta Capsule 20/10mg ORAL SCH (08:57)
[2016-04-22] MEDS: Allopurinol 100mg Tab ORAL SCH (08:57)
[2016-04-22] MEDS: Multivitamin w/Minerals tab ORAL SCH (08:57)
[2016-04-22 11:55] VITALS: BP 123/70
[2016-04-22] MEDS ORDERED: NS 275ml ONE (12:58)
[2016-04-22] MEDS ORDERED: Tubing IV Secondary IV ONE (12:58)
== END 2016-04-22 12:59 | DRG 193 ==
LOC: EDBD 16:16 → EMR 16:52 → EDBEDREQ 21:29 → 2E 22:26
DX: J18.9 Pneumonia, unspecified organism (principal); G92 Toxic encephalopathy; N17.9 Acute kidney failure, unspecified; C91.10 Chronic lymphocytic leukemia of B-cell type not having achieved remission; J40 Bronchitis, not specified as acute or chronic; I12.9 Hypertensive chronic kidney disease with stage 1 through stage 4 chronic kidney disease, or unspecified chronic kidney disease; F01.50 Vascular dementia, unspecified severity, without behavioral disturbance, psychotic disturbance, mood disturbance, and anxiety; F32.9 Major depressive disorder, single episode, unspecified; F41.9 Anxiety disorder, unspecified; I34.0 Nonrheumatic mitral (valve) insufficiency; R26.81 Unsteadiness on feet; Z96.653 Presence of artificial knee joint, bilateral; M81.0 Age-related osteoporosis without current pathological fracture; M10.9 Gout, unspecified; N18.3 Chronic kidney disease, stage 3 (moderate); Z66 Do not resuscitate; F22 Delusional disorders; I50.9 Heart failure, unspecified; E86.9 Volume depletion, unspecified
CPT/HCPCS: 36415; 71010; 80048; 80053; 81003; 83605; 83735; 83880; 84100; 85025; 87040; 87081; 93005; 94640; 94664

== ENCOUNTER 2016-08-01 14:32 | Emergency (ER) | payer MEDICARE, OTHER ==
[~2016-08-01] VITALS: Ht 157.5 cm; Wt 54.4 kg
[~2016-08-01 14:32] MED LIST changes: +AMOX TR-K CLV1 EAC2 ORAL; +NUEDEXTA 20-101 EAC1 ORAL; +VESICARE10 MG ORAL
[2016-08-01] MEDS ORDERED: TOLTERODINE TART1 MG PO (14:44)
[2016-08-01] MEDS ORDERED: REMERON30 MG ORAL (14:44)
[2016-08-01 15:02] VITALS: BP 122/86
[2016-08-01] MEDS ORDERED: cefTRIAXone 1 GM in NS 55 ML IVPB ONE (17:15)
[2016-08-01 18:20] VITALS: BP 128/83
[2016-08-01 18:44] VITALS: BP 128/83
--- NOTE | 2016-08-03 08:19 | Cardiology Report ---
APPROVED REPORT EKG Measurement Heart [id number] ID [id number] Sinus tachycardia with premature atrial complexes Anterior infarct, age undetermined IVCD Abnormal ECG
--- NOTE | 2016-08-03 11:30 | Diagnostic Imaging Report ---
Indication: PAIN Technique: Spiral acquisitions obtained through the cervical spine. No IV contrast utilized. Multiplanar reconstructions were generated. Total dose length product 135 mGycm. CTDIvol(s) 9 mGy. Dose reduction achieved using automated exposure control Comparison: None Findings: There is a slight degree of image degradation due to motion artifact. There is slight anterior offset of C3 on C4, and slight rotation at the C1-C2 joint. Normal bony alignment otherwise. No prevertebral soft tissue swelling. No acute fractures. No dislocations. There is degenerative narrowing of the anterior atlantoaxial joint. At C2-3, no significant disc bulge or protrusion, spinal stenosis, or neural foraminal stenosis. At C3-4, no significant disc old or protrusion or spinal stenosis. There is mild right, moderate left neural foraminal stenosis, predominantly due to facet degeneration. At C4-5, no significant disc bulge or protrusion, spinal stenosis, or neural foraminal stenosis. At C5-6, there is severe degenerative disc narrowing. There is moderate to severe bilateral neural foraminal stenosis. Posterior osteophyte may impinge upon the right lateral recess. At C6-7, there is severe degenerative disc narrowing. No significant disc bulge or protrusion. There is a posterior osteophytes which may impinge upon the right lateral recess. There is to severe bilateral neural foraminal stenosis. At C7-T1, there is mild degenerative disc narrowing. No significant disc bulge or protrusion. There is mild bilateral neural foraminal stenosis due to facet hypertrophy. The included extraspinal soft tissues are unremarkable. Impression: No acute bony trauma Fairly extensive degenerative changes, as delineated on a level bilevel basis above This agrees with the preliminary interpretation provided overnight by Dr. Martínez The CT scanner at [facility] is accredited by the [employer] and the scans are performed using protocols designed to limit radiation exposure to as low as reasonably achievable to attain images of sufficient resolution adequate for diagnostic evaluation.
--- NOTE | 2016-08-03 11:30 | Diagnostic Imaging Report ---
Indication: SOB Technique: One view of the chest Comparison: 04/21/2016 Findings: There is possible retrocardiac opacity. A triangular shaped opacity is seen adjacent to the minor fissure the base of the right upper lobe . The remainder of the lungs and pleural spaces are clear. Aorta is tortuous ectatic and calcified. The heart is borderline enlarged. Previously demonstrated pleural effusions are no longer evident Impression: Mild cardiomegaly Inferior right upper lobe focal patchy infiltrate Possible retrocardiac infiltrate
--- NOTE | 2016-08-07 07:05 | Emergency Room Report ---
History of Present Illness General Chief Complaint: General Complaint Source: Medical Record Present Illness HPI Patient is an 80-year-old female who is brought in by EMS after having increased difficulty breathing and low oxygen saturation noted nursing facility. The patient was noted to have prior DO NOT RESUSCITATE. The patient had no current complaints. Patient's history was limited by patient's mental status. Per patient's daughter she had gradually diminished mental status over the past 4 weeks. Patient had been followed by Dr. Kam Wolff. She had not been noted to be vomiting or having diarrhea. The patient was noted to have slightly diminished oral intake. Allergies: Coded Allergies: No Known Allergies (Verified , 06/24/11) Patient History Past Medical History: see triage record Reviewed Nursing Documentation: PMH: Agreed, PSxH: Agreed Nursing Documentation-PMH Hx Cardiac Problems: Yes Hx Hypertension: Yes Hx Pacemaker: No Hx Asthma: No Hx Diabetes: No Hx Cancer: No Hx Gastrointestinal Problems: No Hx Dialysis: No History Of Psychiatric Problem: Yes Hx Neurological Problems: Yes - Metabolic encephalopathy, difficulty in walking Hx Cerebrovascular Accident: No Hx Seizures: No Hx Weakness: Yes - - Review of Systems All Other Systems: limited - by mental status Physical Exam Vital Signs Date Time Temp Pulse Resp B/P Pulse Ox O2 Delivery O2 Flow Rate FiO2 08/01/16 14:28 98.1 82 16 122/86 98 Room Air Sp02 EP Interpretation: reviewed, normal General Appearance: normal inspection, well appearing, no apparent distress, alert, Chronically Ill Head: atraumatic ENT: normal ENT inspection Neck: normal inspection, supple, no bony tend, limited range of motion Respiratory: normal inspection, normal breath sounds, no respiratory distress, no retraction, no wheezing, crackles Cardiovascular #1: regular rate, rhythm, no edema Gastrointestinal: normal inspection, normal bowel sounds, non tender, soft, no guarding, no hernia Genitourinary: no CVA tenderness Musculoskeletal: normal inspection, back normal, normal range of motion Neurologic: alert, responsive, motor weakness - generalized weakness Psychiatric: normal inspection, judgement/insight normal, mood/affect normal Skin: normal inspection, normal color, no rash Medical Decision Making Diagnostic Impression: Primary Impression: Pneumonia ER Course Patient presented for shortness of breath. Differential included but was not limited to anemia, pneumonia, pneumothorax, myocardial infarction, pericardial effusion, congestive heart failure, acidosis. Patient's case was extensively discussed with her daughter. The patient's daughter declined laboratory testing. A chest x-ray one view interpreted by me showed a right lung infiltrate the cardiac size was noted be slightly enlarged. The patient was given IV antibiotics. The patient's case was discussed with Dr. Xiang Michaels agreed to continue her antibiotics in the nursing facility. Per discussion with the patient's family patient is not to be admitted at this time. Last Vital Signs Date Time Temp Pulse Resp B/P Pulse Ox O2 Delivery O2 Flow Rate FiO2 08/01/16 18:44 97.9 96 15 128/83 99 Room Air Status: unchanged Disposition: HOME, SELF-CARE Condition: Improved Patient Instructions: Cough, Adult Ede Cameron Aug 07, 2016 07:05
== END 2016-08-01 18:45 ==
LOC: EDBD 14:32 → EMR 14:45
DX: J18.9 Pneumonia, unspecified organism (principal); Z66 Do not resuscitate; I10 Essential (primary) hypertension; I51.7 Cardiomegaly; M50.322 Other cervical disc degeneration at C5-C6 level; M48.02 Spinal stenosis, cervical region
CPT/HCPCS: 71010; 72125; 93005; 96360; 99284; J0696